=== PATIENT | female | born 1945 | race Caucasian/White ===

== ENCOUNTER → 2025-01-13 13:48 | Outpatient (REF) | payer MEDICARE, SELFPAY | LOC: HWRAD 13:48 | PROVIDERS: ATTENDING PHYSICIAN Specialist Research Data Abstracter/Coder | DX: N39.0 Urinary tract infection, site not specified (principal); N18.31 Chronic kidney disease, stage 3a | CPT/HCPCS: 76770 ==

== ENCOUNTER → 2025-01-15 15:58 | Outpatient (REF) | payer MEDICARE, SELFPAY | LOC: HWRCS 15:58 | PROVIDERS: ATTENDING PHYSICIAN Internal Medicine Cardiovascular Disease; FAMILY PHYSICIAN Specialist Research Data Abstracter/Coder | DX: I10 Essential (primary) hypertension (principal) | CPT/HCPCS: 93306 ==